=== PATIENT | female | born 1945 | race Caucasian/White ===

== ENCOUNTER 2018-05-31 02:27 | Inpatient (IN) | payer MEDICARE ==
[2018-05-31] VITALS (13 sets, daily range): BP systolic 121–200; BP diastolic 58–100
[~2018-05-31] VITALS: Ht 152.4 cm; Wt 66.0 kg
--- NOTE | ~2018-05-31 | CON ---
[place], [place] REPORT OF CONSULTATION NAME: REY OCONNOR UNIT #: [id number] ROOM: 510 DOCTOR: HILDA ROBBINS MD BIRTHDATE: [birth year] DOS: 06/01/2018 CARDIOLOGY CONSULTATION REASON FOR CONSULTATION: Elevated cardiac enzymes. CLINICAL HISTORY: The patient is a 73-year-old patient who presented to the Emergency Room due to her fall. The patient has been living by herself, somewhat poor historian, unable to give any detailed history, hence history is obtained from the medical records and ER records. Apparently, the patient while she tried to get off the toilet and she fell over, but no loss of consciousness, but she denies any chest pain, palpitations. So, she was found to have slightly elevated cardiac troponin and Cardiology consulted for further recommendations. The patient is alert. Denies any chest pain, shortness of breath. No palpitations. No syncope. No fever and chills. Again, the patient is somewhat poor historian, unable to give any detailed history. She has not seen a physician for about 10 years and no significant cardiac history, hypertension or diabetes. REVIEW OF SYSTEMS: Review of the 10 systems is limited due to the patient's mental status. She denies any chest pains, shortness of breath or palpitations. PAST MEDICAL HISTORY: No significant past medical history, accept patient takes some pain medication for back pain. PAST SURGICAL HISTORY: The patient has history of D and C and left arm surgery. SOCIAL HISTORY: The patient does drink occasionally, does smoke cigarettes, but no illicit drugs. FAMILY HISTORY: Nil contributory. No premature coronary artery disease. History of some chronic kidney disease. HOME MEDICATIONS: The patient takes Vicodin. ALLERGIES: The patient has multiple allergies including PENICILLIN, TYLENOL, OXYCODONE and MEPERIDINE. PHYSICAL EXAMINATION: VITAL SIGNS: Blood pressure 198/96, pulse 70, respiratory rate 20, weight 70 kilos with BMI 28.4. GENERAL: The patient is alert, comfort, in no acute distress, appears to be weak and tired. HEENT: Pupils round and equal. No jaundice. Tongue was moist. Pharynx clear. NECK: Supple. No distended neck veins. No carotid bruit. CHEST: Nontender. LUNGS: A few scattered rhonchi, but fair air entry bilaterally. HEART: Regular rhythm. No S3. Grade 1/6 systolic murmur. ABDOMEN: Bowel sounds normal. EXTREMITIES: Showed trace edema and distal pulses palpable. [place], [place] REPORT OF CONSULTATION NAME: REY OCONNOR UNIT #: [id number] ROOM: [facility] DOCTOR: ITZEL GONZALEZ,HILDA BIRTHDATE: [birth year] SKIN: Warm and dry. No cyanosis. No clubbing. NEUROLOGIC: The patient is alert, oriented. No focal neurologic deficit. RECTAL: Deferred. GENITOURINARY: Deferred. MUSCULOSKELETAL: No joint tenderness or swelling. REVIEW OF THE DIAGNOSTIC TESTS: EKG, sinus rhythm, nonspecific ST changes. Hemoglobin upon admission 11.7, today is 9.0, WBC count 7.9, platelets of 218. Potassium 3.8, BUN 22, creatinine 0.9, magnesium 2.2. Cardiac troponins lowest 0.047 and highest was 0.092. CPK 173. CT head showed no acute bleed. IMPRESSION: 1. Borderline elevation of cardiac troponin, possible non-ST elevation myocardial infarction. 2. Hypertensive urgency. 3. Recurrent falls. 4. Sinus tachycardia. 5. Tobacco use. 6. Anemia. RECOMMENDATIONS: 1. Increase the beta marcella dose to 50 b.i.d. for blood pressure and sinus tachycardia. 2. Aspirin 81 mg once daily and see if she can tolerate. 3. Check 2D echo for LV function, valvular function. 4. The patient denies any chest pain. EKG showed no acute ischemic changes. 5. Rule out any acute GI bleed. Her drop in hemoglobin could be due to IV fluids and dilutional. 6. There is no family at bedside. 7. Baseline 2D echo. We will decide on Lexiscan stress test. 8. The patient counseled to quit smoking. HILDA ROBBINS MD CM:CONSTR:REPORT OF CONSULTATION 09 06/01/181900 interface
--- NOTE | ~2018-05-31 | EKG ---
[place], [place] ELECTROCARDIOGRAM REPORT NAME: REY OCONNOR UNIT #: [id number] ROOM: 510 DOCTOR: SILVIA DRAFT REPORT BIRTHDATE: [birth year] [facility] Test Date: 2018-05-31 Test Time: 02:44:54 Pat Name: REY OCONNOR Department: Room: 510 Gender: F Police Chief Deputy: ANNIKA : 1945 Requested By: FRANK HUNG Order Number: [id number] Reading MD: Dennis Painting MD Measurements Intervals [place] Rate: 89 P: 26 DC: 168 QRS: 20 QRSD: 102 T: 38 QT: 427 QTc: 520 Interpretive Statements Sinus rhythm Probable left atrial enlargement Probable anteroseptal infarct, old Prolonged QT interval Electronically Signed On 06-02-2018 7:25:05 PST by Dennis Painting MD CM:EKGRPT:ELECTROCARDIOGRAM REPORT [id number] FRANK CORBETT DRAFT REPORT FRANK HUNG DO
--- NOTE | ~2018-05-31 | EKG ---
[place], [place] ELECTROCARDIOGRAM REPORT NAME: REY OCONNOR UNIT #: [id number] ROOM: 510 DOCTOR: SILVIA DRAFT REPORT BIRTHDATE: [birth year] [facility] Test Date: 2018-05-31 Test Time: 09:21:21 Pat Name: REY OCONNOR Department: Room: [facility] 1 Gender: F Game [employer]: Diana Ruiz : 1945 Requested By: SMITA KAPLAN Order Number: [id number] Reading MD: Dennis Painting MD Measurements Intervals [place] Rate: 87 P: 25 OR: 172 QRS: 22 QRSD: 88 T: 33 QT: 412 QTc: 496 Interpretive Statements Sinus rhythm Borderline prolonged QT interval Electronically Signed On 06-02-2018 7:29:31 PST by Dennis Painting MD CM:EKGRPT:ELECTROCARDIOGRAM REPORT [id number] SMITA CORBETT DRAFT REPORT SMITA KAPLAN DO
[~2018-05-31 02:27] MED LIST: VICODIN HP 6601 TA1 PO
[2018-05-31 02:45] LABS: BASO % 0.2 % (0.0-1.0); EOS % 0.3 % (1.0-4.0); HEMATOCRIT 37.1 % (37.0-47.0); HEMOGLOBIN 11.7 g/dl (12.0-16.0); LYMPH % 8.6 % (27.0-41.0); MEAN CELL VOLUME 87.3 fl (81.0-99.0); MEAN CORPUSCULAR HGB 27.5 pg (27.0-31.0); MEAN CORPUSCULAR HGB CONC 31.5 g/dl (33.0-37.0); MEAN PLATELET VOLUME 10.2 fl (9.6-12.3); MONO # 0.6 10*3/uL (0.1-1.0); MONO % 4.9 % (3.0-9.0); NEUT # 10.2 10*3/uL (2.3-7.9); NEUT % 85.7 % (47.0-73.0); PLATELET COUNT AUTOMATED 278 10*3/uL (130-400); RED BLOOD COUNT 4.25 10*6/uL (4.10-5.10); RED CELL DISTRI WIDTH 18.2 % (0-14.5); WHITE BLOOD COUNT 11.9 10*3/uL (4.8-10.8)
[2018-05-31 03:02] LABS: ALBUMIN 3.7 gm/dl (3.1-4.5); CREATININE 1.57 mg/dL (0.55-1.02); POTASSIUM 3.2 mmol/L (3.5-5.1); TOTAL PROTEIN 7.9 gm/dL (6.4-8.2); TROPONIN I 0.026 ng/ml (<0.045)
[2018-05-31 06:16] LABS: CREATININE 1.29 mg/dL (0.55-1.02); FREE T4 1.11 ng/dl (0.76-1.46); PHOSPHOROUS 2.5 mg/dL (2.5-4.9); POTASSIUM 3.2 mmol/L (3.5-5.1)
[2018-05-31 06:16] LABS: BASO % 0.2 % (0.0-1.0); EOS % 0.4 % (1.0-4.0); HEMATOCRIT 33.5 % (37.0-47.0); HEMOGLOBIN 10.6 g/dl (12.0-16.0); LYMPH # 1.3 10*3/uL (1.3-4.4); LYMPH % 11.7 % (27.0-41.0); MEAN CELL VOLUME 87.2 fl (81.0-99.0); MEAN CORPUSCULAR HGB 27.6 pg (27.0-31.0); MEAN CORPUSCULAR HGB CONC 31.6 g/dl (33.0-37.0); MEAN PLATELET VOLUME 11.3 fl (9.6-12.3); MONO # 0.8 10*3/uL (0.1-1.0); MONO % 7.3 % (3.0-9.0); PLATELET COUNT AUTOMATED 282 10*3/uL (130-400); RED BLOOD COUNT 3.84 10*6/uL (4.10-5.10); RED CELL DISTRI WIDTH 18.3 % (0-14.5); WHITE BLOOD COUNT 11.2 10*3/uL (4.8-10.8)
[2018-05-31 06:22] LABS: THYROID STIM HORMONE (HS) 1.24 uIU/ml (0.358-4.75)
[2018-05-31 06:31] LABS: TROPONIN I 0.047 ng/ml (<0.045)
[2018-05-31 06:52] LABS: ACT PARTIAL THROMBO TIME 21.7 SECONDS (20.8-31.5)
[2018-05-31 07:41] LABS: PTH INTACT 15.8 pg/mL (18.5-88.0)
[2018-06-01] VITALS: BP 152/64
[2018-06-01 06:42] LABS: BASO % 0.3 % (0.0-1.0); EOS # 0.2 10*3/uL (0.0-0.4); EOS % 2.1 % (1.0-4.0); LYMPH # 1.3 10*3/uL (1.3-4.4); LYMPH % 16.8 % (27.0-41.0); MEAN CELL VOLUME 88.1 fl (81.0-99.0); MEAN CORPUSCULAR HGB 27.4 pg (27.0-31.0); MEAN PLATELET VOLUME 11.6 fl (9.6-12.3); MONO # 0.7 10*3/uL (0.1-1.0); MONO % 8.6 % (3.0-9.0); NEUT # 5.7 10*3/uL (2.3-7.9); NEUT % 71.7 % (47.0-73.0); PLATELET COUNT AUTOMATED 218 10*3/uL (130-400); RED BLOOD COUNT 3.29 10*6/uL (4.10-5.10); RED CELL DISTRI WIDTH 18.6 % (0-14.5); WHITE BLOOD COUNT 7.9 10*3/uL (4.8-10.8)
[2018-06-01 07:10] LABS: ALBUMIN 2.9 gm/dl (3.1-4.5); BUN 22 mg/dl (7-24); CHLORIDE 113 mmol/L (98-107); CPK 141 U/L (26-192); CREATININE 0.92 mg/dL (0.55-1.02); PHOSPHOROUS 2.5 mg/dL (2.5-4.9); POTASSIUM 3.8 mmol/L (3.5-5.1); SGOT/AST 23 IU/L (3-35); SGPT/ALT 22 U/L (12-78); SODIUM 143 mmol/L (136-145); TOTAL PROTEIN 6.1 gm/dL (6.4-8.2)
[2018-06-01 07:11] LABS: ALKALINE PHOSPHATASE 47 U/L (45-117)
[2018-06-01 12:00] VITALS: BP 190/59
[2018-06-01 12:50] VITALS: BP 198/96
[2018-06-01 15:17] VITALS: BP 138/62
[2018-06-01 15:30] LABS: HEMATOCRIT 28.7 % (37.0-47.0); HEMOGLOBIN 9.3 g/dl (12.0-16.0)
[2018-06-01 16:00] VITALS: BP 148/49
[2018-06-01 16:23] LABS: BILIRUBIN NEGATIVE (NEGATIVE); BLOOD 2+ (NEGATIVE); CLARITY CLEAR (CLEAR); COLOR YELLOW (YELLOW); GLUCOSE NEGATIVE (NEGATIVE); KETONE 1+ (NEGATIVE); NITRITE NEGATIVE (NEGATIVE); SPECIFIC GRAVITY 1.015 (1.005-1.030); UROBILINOGEN 0.2 E.U./dl (0.2-1.0)
[2018-06-01 16:54] LABS: LEUKO ESTERASE NEGATIVE (NEGATIVE)
[2018-06-01 16:55] LABS: BACTERIA TRACE; RBC TNTC rbc/hpf (0-2)
[2018-06-01 20:00] VITALS: BP 143/52
[2018-06-02 00:05] VITALS: BP 184/80
[2018-06-02 02:00] VITALS: BP 168/82
[2018-06-02 04:00] VITALS: BP 120/76
[2018-06-02 06:29] LABS: BASO % 0.2 % (0.0-1.0); EOS # 0.2 10*3/uL (0.0-0.4); EOS % 1.7 % (1.0-4.0); HEMATOCRIT 27.9 % (37.0-47.0); HEMOGLOBIN 8.8 g/dl (12.0-16.0); LYMPH # 1.5 10*3/uL (1.3-4.4); LYMPH % 16.8 % (27.0-41.0); MEAN CELL VOLUME 88.6 fl (81.0-99.0); MEAN CORPUSCULAR HGB 27.9 pg (27.0-31.0); MEAN CORPUSCULAR HGB CONC 31.5 g/dl (33.0-37.0); MEAN PLATELET VOLUME 10.9 fl (9.6-12.3); MONO # 0.8 10*3/uL (0.1-1.0); MONO % 8.6 % (3.0-9.0); NEUT # 6.5 10*3/uL (2.3-7.9); NEUT % 72.3 % (47.0-73.0); PLATELET COUNT AUTOMATED 200 10*3/uL (130-400); RED BLOOD COUNT 3.15 10*6/uL (4.10-5.10); RED CELL DISTRI WIDTH 18.2 % (0-14.5)
[2018-06-02 06:51] LABS: BUN 18 mg/dl (7-24); CHLORIDE 113 mmol/L (98-107); CREATININE 0.69 mg/dL (0.55-1.02); POTASSIUM 3.2 mmol/L (3.5-5.1); SODIUM 144 mmol/L (136-145)
[2018-06-02 12:00] VITALS: BP 164/82
[2018-06-02 16:00] VITALS: BP 158/86
[2018-06-02 20:00] VITALS: BP 153/69
[2018-06-03] VITALS: BP 132/72
[2018-06-03 05:07] LABS: TOTAL PROTEIN, SERUM 5.5 g/dL (6.0-8.5)
[2018-06-03 08:17] LABS: BASO % 0.1 % (0.0-1.0); EOS # 0.2 10*3/uL (0.0-0.4); EOS % 2.1 % (1.0-4.0); HEMATOCRIT 28.9 % (37.0-47.0); HEMOGLOBIN 9.7 g/dl (12.0-16.0); LYMPH # 1.1 10*3/uL (1.3-4.4); LYMPH % 11.7 % (27.0-41.0); MEAN CELL VOLUME 86.3 fl (81.0-99.0); MEAN CORPUSCULAR HGB CONC 33.6 g/dl (33.0-37.0); MEAN PLATELET VOLUME 11.1 fl (9.6-12.3); MONO # 0.8 10*3/uL (0.1-1.0); MONO % 8.3 % (3.0-9.0); NEUT # 7.4 10*3/uL (2.3-7.9); NEUT % 77.2 % (47.0-73.0); PLATELET COUNT AUTOMATED 212 10*3/uL (130-400); RED BLOOD COUNT 3.35 10*6/uL (4.10-5.10); RED CELL DISTRI WIDTH 17.4 % (0-14.5); WHITE BLOOD COUNT 9.5 10*3/uL (4.8-10.8)
[2018-06-03 08:28] LABS: BUN 11 mg/dl (7-24); CHLORIDE 108 mmol/L (98-107); CREATININE 0.61 mg/dL (0.55-1.02); POTASSIUM 2.8 mmol/L (3.5-5.1); SODIUM 140 mmol/L (136-145)
[2018-06-03 10:25] VITALS: BP 162/78
[2018-06-03 12:00] VITALS: BP 155/67
[2018-06-03 15:12] LABS: A/G RATIO 1.1 (0.7-1.7); ALBUMIN 2.9 g/dL (2.9-4.4); ALPHA-1-GLOBULIN 0.3 g/dL (0.0-0.4); ALPHA-2-GLOBULIN 0.7 g/dL (0.4-1.0); BETA GLOBULIN 0.9 g/dL (0.7-1.3); GAMMA GLOBULIN 0.7 g/dL (0.4-1.8); GLOBULIN, TOTAL 2.6 g/dL (2.2-3.9); M-SPIKE Not Observed g/dL (Not Observed); PE INTERPRETATION Comment: (.)
[2018-06-03 16:00] VITALS: BP 174/100
[2018-06-03 20:00] VITALS: BP 160/88
[2018-06-04] VITALS: BP 157/67
[2018-06-04 07:29] LABS: BUN 18 mg/dl (7-24); CHLORIDE 113 mmol/L (98-107); CREATININE 0.79 mg/dL (0.55-1.02); PHOSPHOROUS 2.2 mg/dL (2.5-4.9); SODIUM 142 mmol/L (136-145)
[2018-06-04 07:36] LABS: POTASSIUM 3.9 mmol/L (3.5-5.1)
[2018-06-04 08:00] VITALS: BP 158/61
[2018-06-04 12:00] VITALS: BP 153/67
[2018-06-04] MEDS ORDERED: METOPROLOL TART50 M1 PO (15:49)
[2018-06-04] MEDS ORDERED: K-PHOS500 MG PO (15:49)
[2018-06-04] MEDS ORDERED: HYDROXYZINE PAM25 M1 PO (15:49)
[2018-06-04] MEDS ORDERED: LISINOPRIL20 MG PO (15:49)
[2018-06-04] MEDS ORDERED: TRAMADOL HCL50 MG PO (15:49)
[2018-06-04] MEDS ORDERED: ASPIRIN ADULT L81 M2 PO (15:49)
[2018-06-04 16:00] VITALS: BP 159/61
[2018-06-06] MEDS ORDERED: 'CLONIDINE0.1 MG PO (03:35)
== END 2018-06-04 18:23 | disposition other institution (70) | DRG 564 ==
LOC: ED 02:27 → 5E 03:30 → EDHOLD 03:30 → 5E 03:55
PROVIDERS: Family Medicine; Internal Medicine; Internal Medicine Nephrology; Student in an Organized Health Care Education/Training Program
DX: T79.6XXA Traumatic ischemia of muscle, initial encounter (principal); N17.0 Acute kidney failure with tubular necrosis; I38 Endocarditis, valve unspecified; I16.0 Hypertensive urgency; M81.0 Age-related osteoporosis without current pathological fracture; R29.6 Repeated falls; I35.2 Nonrheumatic aortic (valve) stenosis with insufficiency; R53.1 Weakness; R00.0 Tachycardia, unspecified; D72.810 Lymphocytopenia; D64.9 Anemia, unspecified; E66.3 Overweight; E83.39 Other disorders of phosphorus metabolism; Z66 Do not resuscitate; Z51.5 Encounter for palliative care; E87.6 Hypokalemia; R73.9 Hyperglycemia, unspecified; F17.210 Nicotine dependence, cigarettes, uncomplicated; E83.52 Hypercalcemia; Z71.6 Tobacco abuse counseling; Z88.0 Allergy status to penicillin; Z88.6 Allergy status to analgesic agent; Z88.8 Allergy status to other drugs, medicaments and biological substances; Z82.61 Family history of arthritis; Z84.1 Family history of disorders of kidney and ureter; Z82.5 Family history of asthma and other chronic lower respiratory diseases

== ENCOUNTER 2021-01-23 09:45 | Inpatient (IN) | payer OTHER ==
[~2021-01-23] VITALS: Ht 152.4 cm; Wt 70.4 kg
[~2021-01-23 09:45] MED LIST changes: +'CLONIDINE0.1 MG PO; +ASPIRIN ADULT L81 M2 PO; +HYDROXYZINE PAM25 M1 PO; +K-PHOS500 MG PO; +LISINOPRIL20 MG PO; +METOPROLOL TART50 M1 PO; +TRAMADOL HCL50 MG PO
[2021-01-23 09:52] VITALS: BP 117/68
[2021-01-23 11:38] LABS: HEMATOCRIT 39.8 % (37.0-47.0); MEAN CELL VOLUME 88.2 fl (81.0-99.0); MEAN CORPUSCULAR HGB 27.7 pg (27.0-31.0); MEAN CORPUSCULAR HGB CONC 31.4 g/dl (33.0-37.0); MEAN PLATELET VOLUME 10.2 fl (9.6-12.3); PLATELET COUNT AUTOMATED 355 10*3/uL (130-400); RED BLOOD COUNT 4.51 10*6/uL (4.10-5.10); RED CELL DISTRI WIDTH 15.8 % (0-14.5); WHITE BLOOD COUNT 19.4 10*3/uL (4.8-10.8)
[2021-01-23 11:52] LABS: ALBUMIN 3.1 gm/dl (3.1-4.5); ALKALINE PHOSPHATASE 77 U/L (45-117); BUN 27 mg/dl (7-24); CHLORIDE 115 mmol/L (98-107); CREATININE 0.93 mg/dL (0.55-1.02); POTASSIUM 4.9 mmol/L (3.5-5.1); SGOT/AST 21 IU/L (3-35); SGPT/ALT 26 U/L (12-78); SODIUM 140 mmol/L (136-145); TOTAL PROTEIN 6.8 gm/dL (6.4-8.2)
[2021-01-23 12:03] LABS: PLATELET SUFFICIENCY NORMAL (NORMAL); TOTAL CELLS COUNTED 100 #CELLS
[2021-01-23 13:30] VITALS: BP 159/68
[2021-01-23] MEDS ORDERED: CLARITIN10 MG PO (14:19)
[2021-01-23] MEDS ORDERED: ANTIFUNGAL C14.18 GM T (14:19)
[2021-01-23] MEDS ORDERED: DULCOLAX10 M1 R (14:19)
[2021-01-23] MEDS ORDERED: FLEET ENEMA 13133 ML R (14:20)
[2021-01-23] MEDS ORDERED: HYDROCORTISONE30 GM T (14:21)
[2021-01-23] MEDS ORDERED: HYDROXYZINE PAM25 M1 PO (14:22)
[2021-01-23] MEDS ORDERED: ANTI-DIARRHEAL2 MG PO (14:25)
[2021-01-23] MEDS ORDERED: MELATONIN10 M4 PO (14:26)
[2021-01-23] MEDS ORDERED: MILK OF MA400 MG/5 M PO (14:28)
[2021-01-23] MEDS ORDERED: NEURONTIN100 MG PO (14:28)
[2021-01-23] MEDS ORDERED: CLOPIDOGREL75 MG PO (14:29)
[2021-01-23] MEDS ORDERED: PREDNISONE10 MG PO (14:29)
[2021-01-23] MEDS ORDERED: DULCOLAX STOOL100 M1 PO (14:30)
[2021-01-23] MEDS ORDERED: VITAMIN C500 M4 PO (14:31)
[2021-01-23 16:00] VITALS: BP 136/92
[2021-01-23 20:00] VITALS: BP 125/71
[2021-01-24] VITALS: BP 137/76
[2021-01-24 08:00] VITALS: BP 156/68
[2021-01-24 16:00] VITALS: BP 154/87
[2021-01-24 20:00] VITALS: BP 165/77
[2021-01-25 08:00] VITALS: BP 157/78
[2021-01-25 12:00] VITALS: BP 149/88
[2021-01-25 16:00] VITALS: BP 147/68
[2021-01-25 20:00] VITALS: BP 165/56
[2021-01-26 00:10] VITALS: BP 167/82
[2021-01-26 08:29] VITALS: BP 169/99
[2021-01-26] MEDS ORDERED: DOXYCYCLINE100 M3 PO (12:52)
[2021-01-26] MEDS ORDERED: PREDNISONE10 MG PO (12:52)
== END 2021-01-26 17:18 | DRG 595 ==
LOC: ED 09:45 → 4E 11:25 → EDHOLD 11:25 → 4E 11:50
PROVIDERS: Physician Assistant; ADMIT Internal Medicine; ATTEND Internal Medicine
DX: L12.0 Bullous pemphigoid (principal); R65.11 Systemic inflammatory response syndrome (SIRS) of non-infectious origin with acute organ dysfunction; F33.9 Major depressive disorder, recurrent, unspecified; M81.0 Age-related osteoporosis without current pathological fracture; D72.829 Elevated white blood cell count, unspecified; E87.8 Other disorders of electrolyte and fluid balance, not elsewhere classified; G89.29 Other chronic pain; E83.51 Hypocalcemia; L98.9 Disorder of the skin and subcutaneous tissue, unspecified; S71.101A Unspecified open wound, right thigh, initial encounter; S41.102A Unspecified open wound of left upper arm, initial encounter; F43.10 Post-traumatic stress disorder, unspecified; F41.9 Anxiety disorder, unspecified; Z20.822 Contact with and (suspected) exposure to COVID-19; Z88.6 Allergy status to analgesic agent; Z88.0 Allergy status to penicillin; Z88.8 Allergy status to other drugs, medicaments and biological substances; Z83.6 Family history of other diseases of the respiratory system; X58.XXXA Exposure to other specified factors, initial encounter; Y93.89 Activity, other specified; Y92.89 Other specified places as the place of occurrence of the external cause; Y99.8 Other external cause status

== ENCOUNTER 2021-06-07 14:04 | Emergency (ER) | payer OTHER ==
[~2021-06-07] VITALS: Ht 152.4 cm; Wt 70.3 kg
[~2021-06-07 14:04] MED LIST changes: +ANTI-DIARRHEAL2 MG PO; +ANTIFUNGAL C14.18 GM T; +CLARITIN10 MG PO; +CLOPIDOGREL75 MG PO; +DOXYCYCLINE100 M3 PO; +DULCOLAX STOOL100 M1 PO; +DULCOLAX10 M1 R; +FLEET ENEMA 13133 ML R; +HYDROCORTISONE30 GM T; +MELATONIN10 M4 PO; +MILK OF MA400 MG/5 M PO; +NEURONTIN100 MG PO; +PREDNISONE10 MG PO; +VITAMIN C500 M4 PO
[2021-06-07 14:45] LABS: HEMATOCRIT 32.3 % (37.0-47.0); MEAN CELL VOLUME 76.9 fl (81.0-99.0); MEAN CORPUSCULAR HGB 22.6 pg (27.0-31.0); MEAN CORPUSCULAR HGB CONC 29.4 g/dl (33.0-37.0); MEAN PLATELET VOLUME 9.5 fl (9.6-12.3); PLATELET COUNT AUTOMATED 352 10*3/uL (130-400); RED CELL DISTRI WIDTH 18.4 % (0-14.5); WHITE BLOOD COUNT 13.8 10*3/uL (4.8-10.8)
[2021-06-07 15:01] LABS: ALBUMIN 1.3 gm/dl (3.1-4.5); ALKALINE PHOSPHATASE 78 U/L (45-117); BUN 26 mg/dl (7-24); CHLORIDE 120 mmol/L (98-107); CREATININE 0.71 mg/dL (0.55-1.02); SGOT/AST 18 IU/L (3-35); SGPT/ALT 18 U/L (12-78); SODIUM 148 mmol/L (136-145); TOTAL CELLS COUNTED 100 #CELLS; TOTAL PROTEIN 5.5 gm/dL (6.4-8.2)
[2021-06-07 15:02] LABS: BURR CELLS FEW; MICROCYTOSIS SLIGHT; PLATELET SUFFICIENCY NORMAL (NORMAL)
[2021-06-07] MEDS ORDERED: KLONOPIN0.5 MG PO (16:36)
[2021-06-07] MEDS ORDERED: MIRTAZAPINE7.5 MG PO (16:37)
[2021-06-07] MEDS ORDERED: HYDROCODON-ACE1 EACH PO (16:38)
[2021-06-07] MEDS ORDERED: OMEPRAZOLE MAGN20 MG PO (16:39)
[2021-06-07] MEDS ORDERED: KENALOG 0.1%80 GM T (16:40)
== END 2021-06-08 00:11 | disposition short-term general hospital (02) ==
LOC: ED 14:04
PROVIDERS: Physician Assistant
DX: L51.1 Stevens-Johnson syndrome (principal)